=== PATIENT | male | born 1975 | race African-American/Black ===

== ENCOUNTER → 2016-06-12 | Emergency (ER) | payer MEDICAID ==
[~2016-06-12] MED LIST: CYCL10TA3 PO; IBUP800T24 PO; TRAM50TA2 PO
== END | disposition left against medical advice (07) ==
LOC: ER 17:48
DX: R94.31 Abnormal electrocardiogram [ECG] [EKG] (principal); Z53.21 Procedure and treatment not carried out due to patient leaving prior to being seen by health care provider

== ENCOUNTER 2016-07-28 22:15 | Emergency (ER) | payer MEDICAID ==
[~2016-07-28] VITALS: Ht 188 cm; Wt 95.3 kg
[2016-07-29 01:02] VITALS: BP 138/87
[2016-07-29] MEDS ORDERED: KETOROLAC TROMETH 60MG/2ML VIAL IM ONE (02:00)
== END 2016-07-29 02:22 | disposition home or self-care (01) ==
LOC: ER 22:17
DX: M54.5 Low back pain (principal); F17.210 Nicotine dependence, cigarettes, uncomplicated; F12.10 Cannabis abuse, uncomplicated; Z79.899 Other long term (current) drug therapy; X50.9XXA Other and unspecified overexertion or strenuous movements or postures, initial encounter; Y93.89 Activity, other specified; Y92.89 Other specified places as the place of occurrence of the external cause; Y99.8 Other external cause status
CPT/HCPCS: 72100; 96372; 99284; J1885

== ENCOUNTER 2016-08-29 12:10 | Emergency (ER) | payer MEDICAID ==
[~2016-08-29] VITALS: Ht 188 cm; Wt 95.3 kg
[2016-08-29 12:22] VITALS: BP 149/89
[2016-08-29] MEDS ORDERED: ALUM & MAG HYDROX-SIMETH LIQ(MAALOX) 30 ML PO ONE (13:30)
[2016-08-29] MEDS ORDERED: LIDOCAINE VISCOUS 2% 15ML UD PO ONE (13:30)
[2016-08-29] MEDS ORDERED: DONNATAL 5ml ORAL Elix (BELLADONNA ALK-PHENOBARB) PO ONE (13:30)
== END 2016-08-29 15:13 | disposition home or self-care (01) ==
LOC: ER 12:10
DX: J02.9 Acute pharyngitis, unspecified (principal); K21.9 Gastro-esophageal reflux disease without esophagitis; F17.210 Nicotine dependence, cigarettes, uncomplicated; F12.10 Cannabis abuse, uncomplicated; Z90.49 Acquired absence of other specified parts of digestive tract
CPT/HCPCS: 70360; 71250

== ENCOUNTER 2019-05-20 12:35 | Inpatient (IN) | payer MEDICAID ==
[~2019-05-20] VITALS: Ht 188 cm; Wt 107.2 kg
[~2019-05-20 12:35] MED LIST changes: -CYCL10TA3 PO; +DYA375C PO; +HYDR-531 PO; -IBUP800T24 PO
[2019-05-20] MEDS ORDERED: ASPirin 81 mg TAB PO ONE (12:45)
[2019-05-20] MEDS ORDERED: ONDANSETRON HCL 4 MG/2 ML VIAL IV ONE (12:45)
[2019-05-20] MEDS ORDERED: MORPHINE SULFATE 4 MG/ML SYR/VIAL IV ONE (12:45)
[2019-05-20 13:31] LABS: Basophils # (auto) 0.1 10 ^3/uL (0-0.2); Basophils % (auto) 1.1 % (0.0-2.0); Eosinophils # (auto) 0.1 10 ^3/uL (0-0.8); Eosinophils % (auto) 2.3 % (0.0-7.0); Hematocrit 44.7 % (41.0-53.0); Hemoglobin 15.1 g/dL (13.5-17.5); Lymphocytes # (auto) 2.3 10 ^3/uL (0.4-5.4); Lymphocytes % (auto) 37.7 % (10.0-50.0); Mean Corpuscular Hgb Conc. 33.7 g/dL (32.0-36.0); Monocytes # (auto) 0.5 10 ^3/uL (0-1.3); Monocytes % (auto) 7.6 % (0.0-12.0); Neutrophils # (auto) 3.1 10 ^3/uL (1.6-8.6); Neutrophils % (auto) 51.3 % (37.0-80.0); Nucleated Red Blood Cells % 0.3 %; Platelet Count (auto) 256 10^3/uL (140-450); Red Blood Cells 4.42 10^6/uL (4.5-5.90); Red Cell Distribution Width 13.6 % (11.8-14.3)
[2019-05-20 13:47] LABS: INR 1.05 (0.9-1.15); Partial Thromboplastin Time 28.8 sec (23.64-32.05)
[2019-05-20 13:48] LABS: Albumin 4.1 g/dL (3.4-5.0); Calcium 8.6 mg/dL (8.5-10.1); Potassium 3.8 mmol/L (3.5-5.1)
[2019-05-20 13:50] LABS: BUN/Creatinine Ratio 7.5
[2019-05-20 13:55] LABS: Total Protein 8.1 g/dL (6.4-8.2)
[2019-05-20] MEDS ORDERED: KETOROLAC TROMETH 30 MG/ML 1ML VIAL IV PRN (16:15)
[2019-05-20] MEDS ORDERED: KETOROLAC TROMETH 30 MG/ML 1ML VIAL IV ONE (16:15)
[2019-05-20] MEDS ORDERED: MORPHINE SULF INJ 2 MG/ML SYRINGE 1ML IV PRN (16:15)
[2019-05-20] MEDS ORDERED: NITROGLYCERIN 0.4 MG SL TAB SL PRN (16:15)
[2019-05-20] MEDS ORDERED: ISOSORBIDE MONONITRATE ER 60 MG TAB PO ONE (16:15)
[2019-05-20] MEDS ORDERED: hydrALAZINE HCL 20 MG/ML VL IV PRN (16:15)
[2019-05-20 17:10] LABS: Cholesterol 287 mg/dL (< 200); HDL Cholesterol 65 mg/dL (40-59); LDL Cholesterol 177 mg/dL (< 100); Triglycerides 155 mg/dL (< 150)
--- NOTE | 2019-05-20 18:12 | NUR ---
Telemetry admit from ER KAYCEE DOUGHERTY admitted to Telemetry unit after SBAR received. Patient oriented to ANGÉLICA VELASQUEZ, primary RN, unit, room, bed, and unit policies regarding patient care and NO visiting hours at this time. Patient now on continuous telemetry monitoring, tele box # 31 and telemetry reading on arrival to unit is 63 SR.Pain management in place and effective. Patient does not need oxygen; weighed by bedscale and encouraged to call if they need something. All questions and concerns addressed, patient verbalized understanding.
[2019-05-20] MEDS: MORPHINE SULF INJ 2 MG/ML SYRINGE 1ML IV PRN (18:48)
--- NOTE | 2019-05-20 19:13 | NUR ---
ENDORSED CARE TO NIGHT RN. PATIENT AMBULATED WITHOUT ASSISTANCE TO THE RESTROOM AND BACK TO BED WITHOUT DIFFICULTY, DENIED SOB, CP OR DISCOMFORT.
--- NOTE | 2019-05-20 19:15 | NUR ---
Opening Shift Note Assumed care of patient, awake and alert. No S/S of distress/SOB.Complains of chest and back pain which he rates as 6/10 which has improved after receiving morphine. Bed is locked in lowest position with call light within reach. Instructed on POC and to call for assist PRN, will continue to monitor for changes Q1hr and PRN.
--- NOTE | 2019-05-20 19:54 | NUR ---
PAIN MANAGE O/P PATIENT HAS CHRONIC BACK PAIN FROM A WORK RELATED FALL AND INJURY. HE HAS AN APPOINTMENT AT [facility] IN [place]
[2019-05-20 22:00] VITALS: BP 125/79
[2019-05-20] MEDS: ATORVASTATIN 20 MG TAB PO SCH (22:00)
--- NOTE | 2019-05-21 04:30 | NUR ---
Patient experienced 5 beats of V tach. The patient is asymptomatic and vitals are stable (BP 116/80, HR 60, RR 20, SPO2 96%). Will inform that hospitalist.
[2019-05-21 05:00] VITALS: BP 129/118
--- NOTE | 2019-05-21 06:55 | NUR ---
HOSPITALIST RETURN PAGE Informed hospitalist Charanjit about the patient's 5 beats of V tachy. No new orders received. Will continue to monitor the patient.
--- NOTE | 2019-05-21 08:17 | NUR ---
OPENING SHIFT NOTE Assumed care of patient. PT is awake and alert. No S/S of distress/SOB or pain. PT continues to report same chest pain from admission. Will administer ordered pain medication. Instructed on POC and to call for assist PRN, will continue to monitor for changes Q1hr and PRN.
[2019-05-21 08:38] LABS: Urine WBC None Seen /hpf (0 - 3)
[2019-05-21 08:47] LABS: Urine Bacteria NONE SEEN /hpf (None Seen); Urine Blood Negative /uL (Negative); Urine Mucus FEW (None Seen); Urine Specific Gravity 1.026 (1.001-1.035)
[2019-05-21 09:00] VITALS: BP 145/91
[2019-05-21] MEDS: MORPHINE SULF INJ 2 MG/ML SYRINGE 1ML IV PRN ×3 (09:42→22:38)
[2019-05-21] MEDS ORDERED: ISOSORBIDE MONONITRATE ER 60 MG TAB PO SCH (10:00)
[2019-05-21 13:00] VITALS: BP 137/84
[2019-05-21] MEDS: ACETAMINOPHEN 500 MG TAB PO PRN ×2 (14:01→23:33)
[2019-05-21 16:52] VITALS: BP 130/84
--- NOTE | 2019-05-21 19:18 | NUR ---
Opening Shift Note Assumed care of patient, awake and alert. No S/S of distress/SOB. Patient states he has mild headache, Tylenol not due provided patient with cold compress for his pain. Safety measures in place bed in lowest position, side rails up x2, and call light within reach. Instructed on POC and to call for assist PRN, will continue to monitor for changes Q1hr and PRN.
--- NOTE | 2019-05-21 21:45 | NUR ---
Patient requesting to shower. Provided patient with materials to take a bed bath. Will continue to monitor.
[2019-05-21 22:00] VITALS: BP 146/93
[2019-05-21] MEDS: ATORVASTATIN 20 MG TAB PO SCH (22:37)
--- NOTE | 2019-05-21 22:38 | NUR ---
Patient complaining of back pain. Patient states he has chronic back pain 09/04. Administered pain medication. Advised patient to turn frequently to relieve pressure on his back. Will reassess in 30 minutes. Will continue to monitor.
--- NOTE | 2019-05-21 23:08 | NUR ---
Pain reassessed patient states pain is 5/10. Patient offered heat back for his chronic back pain, patient refused. Patient request waiting to see if pain continues to subside. Will continue to monitor.
--- NOTE | 2019-05-21 23:33 | NUR ---
Patient complaining of headache. Patient requested Tylenol for head pain. Patient states pain is 5/10. Administered Tylenol will reassess in one hour.
--- NOTE | 2019-05-22 00:33 | NUR ---
Reassessed pain. Patient states headache is 0/10. Back pain is 2/10. Patient states back pain is chronic, but he is comfortable right now. Patient returned to sleep. Will continue to monitor every hour and as needed.
[2019-05-22 05:00] VITALS: BP 134/93
--- NOTE | 2019-05-22 07:30 | NUR ---
Opening Shift Note Assumed care of patient, awake and alert. No S/S of distress/SOB or pain. Instructed on POC and to call for assist PRN, will continue to monitor for changes Q1hr and PRN.
[2019-05-22 09:00] VITALS: BP 136/91
--- NOTE | 2019-05-22 11:40 | NUR ---
Dr. Aguila in to see patient as hospitalist.
[2019-05-22 12:42] VITALS: BP 129/118
== END 2019-05-22 13:37 | disposition home or self-care (01) | DRG 203 ==
LOC: ER 12:35 → TELE 12:36 → TELE-CENTR 17:59
PROVIDERS: ADMIT Nurse Practitioner Acute Care; ATTEND Internal Medicine
DX: R07.89 Other chest pain (principal); I11.0 Hypertensive heart disease with heart failure; I50.9 Heart failure, unspecified; E66.9 Obesity, unspecified; F10.10 Alcohol abuse, uncomplicated; Y90.9 Presence of alcohol in blood, level not specified; E78.5 Hyperlipidemia, unspecified; Z82.49 Family history of ischemic heart disease and other diseases of the circulatory system; Z79.899 Other long term (current) drug therapy; Z68.30 Body mass index [BMI] 30.0-30.9, adult; Z87.891 Personal history of nicotine dependence
CPT/HCPCS: 36415; 71046; 80053; 80061; 81001; 83735; 83880; 84484; 85025; 85610; 85730; 86141; 93005; 93306; G0378; J1885; J2405

== ENCOUNTER 2019-11-20 14:12 | Emergency (ER) | payer MEDICAID ==
[~2019-11-20] VITALS: Ht 188 cm; Wt 95.3 kg
[2019-11-20 14:33] VITALS: BP 111/70
[2019-11-20] MEDS ORDERED: KETOROLAC TROMETH 60MG/2ML VIAL IM ONE (15:00)
== END 2019-11-20 15:44 | disposition home or self-care (01) ==
LOC: ER 14:12
DX: S39.012A Strain of muscle, fascia and tendon of lower back, initial encounter (principal); X50.1XXA Overexertion from prolonged static or awkward postures, initial encounter; Y93.89 Activity, other specified; Y92.89 Other specified places as the place of occurrence of the external cause; Y99.8 Other external cause status
CPT/HCPCS: 72100; 81002; 96372; 99283; J1885

== ENCOUNTER 2020-12-28 08:59 | Emergency (ER) | payer MEDICAID ==
[~2020-12-28] VITALS: Ht 188 cm; Wt 94.3 kg
[~2020-12-28 08:59] MED LIST changes: -DYA375C PO; +TRIA37.56 PO
[2020-12-28 10:18] LABS: Albumin 4.1 g/dL (3.4-5.0); Calcium 9.2 mg/dL (8.5-10.1); Magnesium 2.6 mg/dL (1.6-2.6); Potassium 4.5 mmol/L (3.5-5.1)
[2020-12-28 10:24] LABS: BUN/Creatinine Ratio 6.9; Total Protein 8.2 g/dL (6.4-8.2)
[2020-12-28 10:25] LABS: Basophils # (auto) 0.1 10 ^3/uL (0-0.2); Basophils % (auto) 0.9 % (0.0-2.0); Eosinophils # (auto) 0 10 ^3/uL (0-0.8); Eosinophils % (auto) 0.7 % (0.0-7.0); Lymphocytes # (auto) 1.5 10 ^3/uL (0.4-5.4); Lymphocytes % (auto) 25.1 % (10.0-50.0); Mean Corpuscular Hemoglobin 33.6 pg (28.0-32.0); Mean Corpuscular Hgb Conc. 33.3 g/dL (32.0-36.0); Mean Corpuscular Volume 100.8 fL (80.0-100.0); Monocytes # (auto) 0.4 10 ^3/uL (0-1.3); Monocytes % (auto) 7.3 % (0.0-12.0); Neutrophils # (auto) 4.1 10 ^3/uL (1.6-8.6); Nucleated Red Blood Cells % 0.1 %; Red Blood Cells 4.46 10^6/uL (4.5-5.90); Red Cell Distribution Width 12.8 % (11.8-14.3); White Blood Cell 6.1 10^3/uL (4.4-10.8)
[2020-12-28 13:51] LABS: Urine Bacteria NONE SEEN /hpf (None Seen); Urine Blood Negative /uL (Negative); Urine Mucus FEW (None Seen); Urine Specific Gravity 1.021 (1.001-1.035); Urine WBC 1 /hpf (0 - 3)
[2020-12-28 19:46] VITALS: BP 140/92
== END 2020-12-29 07:36 | disposition home or self-care (01) ==
LOC: ER 08:59
DX: R07.2 Precordial pain (principal); E03.9 Hypothyroidism, unspecified; Z90.49 Acquired absence of other specified parts of digestive tract; Z90.89 Acquired absence of other organs; Z79.899 Other long term (current) drug therapy
CPT/HCPCS: 36415; 71046; 71250; 80053; 81001; 83735; 84443; 84484; 85025; 93005

== ENCOUNTER 2021-09-13 14:59 | Emergency (ER) | payer MEDICAID ==
[~2021-09-13] VITALS: Ht 188 cm; Wt 200.0 kg
[2021-09-13] MEDS ORDERED: ASPirin 81 mg TAB PO ONE (15:15)
[2021-09-13] MEDS ORDERED: SODIUM CHLORIDE 0.9% 1,000 ML IV ONE (15:15)
[2021-09-13 15:52] LABS: Basophils # (auto) 0.1 10 ^3/uL (0-0.2); Eosinophils # (auto) 0.1 10 ^3/uL (0-0.8); Eosinophils % (auto) 1.3 % (0.0-7.0); Hemoglobin 14.3 g/dL (13.5-17.5); Lymphocytes # (auto) 2.1 10 ^3/uL (0.4-5.4); Lymphocytes % (auto) 30.4 % (10.0-50.0); Mean Corpuscular Hgb Conc. 33.2 g/dL (32.0-36.0); Mean Corpuscular Volume 99.5 fL (80.0-100.0); Monocytes # (auto) 0.5 10 ^3/uL (0-1.3); Monocytes % (auto) 6.6 % (0.0-12.0); Neutrophils # (auto) 4.3 10 ^3/uL (1.6-8.6); Neutrophils % (auto) 60.7 % (37.0-80.0); Nucleated Red Blood Cells % 0.1 %; Red Blood Cells 4.32 10^6/uL (4.5-5.90); White Blood Cell 7.1 10^3/uL (4.4-10.8)
[2021-09-13 16:07] LABS: Alanine Aminotransferase 24 U/L (16-61); Albumin 4.5 g/dL (3.4-5.0); Anion Gap 9 (5-15); Aspartate Aminotransferase 21 U/L (15-37); BUN/Creatinine Ratio 7.9; Blood Alcohol < 3.0 mg/dL (0-5); Blood Urea Nitrogen 10 mg/dL (7-18); Calcium 9.4 mg/dL (8.5-10.1); Carbon Dioxide 26 mmol/L (21-32); Chloride 108 mmol/L (98-107); GFR African American 79 mL/min; GFR Non-African American 65 mL/min; Glucose 89 mg/dL (74-106); Magnesium 2.2 mg/dL (1.6-2.6); Potassium 3.9 mmol/L (3.5-5.1); Sodium 143 mmol/L (136-145)
[2021-09-13 16:09] LABS: Alkaline Phosphatase 57 U/L (45-117); Bilirubin, Total 0.8 mg/dL (0.2-1.0); Total Protein 8.2 g/dL (6.4-8.2)
[2021-09-13 16:28] LABS: Amphetamine Screen, Urine NEGATIVE (NEGATIVE); Barbiturate Scree,Urine NEGATIVE (NEGATIVE); Benzodiazephine Screen, Urine NEGATIVE (NEGATIVE); Cannabinoid Screen, Urine NEGATIVE (NEGATIVE); Cocaine Screen, Urine NEGATIVE (NEGATIVE); Opiate Scree,Urine NEGATIVE (NEGATIVE); Phencyclidine Screen, Urine NEGATIVE (NEGATIVE)
[2021-09-13] MEDS ORDERED: IOHEXOL 350 MG/ML 100ML IJ ONE ×2 (19:21→20:21)
[2021-09-13 21:10] VITALS: BP 120/74
== END 2021-09-13 21:15 | disposition home or self-care (01) ==
LOC: ER 14:59
DX: R07.89 Other chest pain (principal); E03.9 Hypothyroidism, unspecified; F17.210 Nicotine dependence, cigarettes, uncomplicated; Z90.49 Acquired absence of other specified parts of digestive tract; Z90.89 Acquired absence of other organs; Z79.899 Other long term (current) drug therapy
CPT/HCPCS: 36415; 71046; 71275; 80053; 80307; 80320; 83735; 84484; 85025; 96360; 99285; J7030; Q9967